=== PATIENT | male | born 1955 | race Caucasian/White ===

== ENCOUNTER 2020-02-20 01:13 | Outpatient (CLI) | payer OTHER, SELFPAY ==
[2020-02-20 18:39] LABS: SARS-CoV-2 RNA PCR Negative
== END 2020-02-20 01:14 | disposition home or self-care (01) ==
LOC: ANHCOVIDDT 01:13
PROVIDERS: PCP Family Medicine; Visit Provider Specialist
DX: Z01.812 Encounter for preprocedural laboratory examination (principal); Z11.59 Encounter for screening for other viral diseases
CPT/HCPCS: 87635; C9803; U0003

== ENCOUNTER 2020-02-22 05:36 | Day surgery (SDC) | payer OTHER, SELFPAY ==
[2020-02-21 15:56] VITALS: BMI 31.6
[2020-02-22] VITALS (8 sets, daily range): BP systolic 111–139; BP diastolic 80–92; PULSE 65–87; RESP 14–25; TEMP 37.2; O2SAT 95–98; BMI 30.6
[2020-02-22 07:34] LABS: Basophils Absolute Auto 0.1 K/mm3 (0.0-0.1); Eosinophils Absolute Auto 0.2 K/mm3 (0-0.3); Eosinophils Percent Auto 2.1 % (0-4.4); Hematocrit 49.2 % (42.0-52.0); Hemoglobin 16.4 g/dL (14.0-18.0); Immature Granulocyte Absolute 0.02 K/mm3 (0.00-0.031); Immature Granulocyte Percent A 0.3 % (0-0.5); Lymphocytes Absolute Auto 2.32 K/mm3 (0.9-3.2); Lymphocytes Percent Auto 30.1 % (18.3-44.2); Mean Corpuscular HGB Conc 33.3 g/dl (32-36); Mean Corpuscular Hemoglobin 28.9 pg (26-34); Mean Corpuscular Volume 86.6 fl (80-100); Mean Platelet Volume 10.3 fl (7.4-10.4); Monocytes Absolute Auto 0.7 K/mm3 (0.1-0.6); Monocytes Percent Auto 9.5 % (2.6-8.5); Neutrophils Absolute Auto 4.4 K/mm3 (1.3-6.7); Platelet Count Result 220 k/mm3 (150-375); Red Blood Count 5.68 M/mm3 (4.6-6.20); Red Cell Distribution Width 12.7 % (11.5-14.5); White Blood Count 7.7 K/mm3 (4.5-10.0)
[2020-02-22 07:46] LABS: Anion Gap 14.4 mmol/L (7-16); Blood Urea Nitrogen 14 mg/dL (9-20); Carbon Dioxide 22 mmol/L (22-30); Chloride 106 mmol/L (98-107); Estimated CRCL calculation 94 ml/min; Estimated Glomerular Filt Rate > 60; Glucose 119 mg/dL (75-110); INR 0.9; Potassium 4.4 mmol/L (3.4-5.0); Prothrombin Time 12.1 Seconds (11.1-14.7); Sodium 138 mmol/L (137-145)
--- NOTE | 2020-02-22 09:21 | WPDMODSED ---
Moderate Sedation Note-Pt Data Patient Data Diagnosis: 64-year-old patient with coronary artery disease, previous RCA PCI. Patient reporting exertional shortness of breath and has a mildly abnormal nuclear stress test Present Complaint: exertional dyspnea Procedure to be performed/Plan: left heart catheterization Allergies Allergy/AdvReac Type Severity Reaction Status Date / Time No Known Allergies Allergy Unknown Verified 02/21/20 16:08 Home Medications Medication Instructions Recorded Confirmed Type aspirin 81 mg tablet,delayed 81 mg PO DAILY 10/05/19 02/22/20 History release metoprolol tartrate 25 mg tablet 25 mg PO BID 10/05/19 02/22/20 History nitroglycerin 0.4 mg sublingual 0.4 mg SUBLINGUAL Q5M 10/05/19 02/21/20 History tablet rosuvastatin 20 mg tablet 20 mg PO DAILY 10/05/19 02/21/20 History Current Medications: Active Medications Sodium Chloride (Normal Saline Iv) 500 mls @ 100 mls/hr IV CONT .Q5H LANDON Sedation/Anesthesia: No previous sedation/anesthesia problems (including family history). [facility] Past Medical History Medical History (Updated 10/05/19 @ 09:15 by Eligio Ivan MD) IFG (impaired fasting glucose) Surgical History Surgical History S/P coronary artery stent placement Social History Social History Smoking status: Never smoker Second hand tobacco smoke exposure: No Alcohol intake: never Substance use: never Substance use type: does not use Gender identity (if verbalized by the patient): Male Mod Sed Physical Exam Physical Exam Pre Procedural Exam: Normal: Neck, Throat, Airway, Lungs, Heart Size, Heart Rate, Heart Rhythm, Neuro Exam and Extremities and Variation: Appearance ( overweight white male no apparent distress) Hours since solid foods: 12 Hours since liquid intake: 12 Internal Medicine - PN: Obj Da Vital Signs Vital Signs: Vital Signs - 24 hr 02/22/20 07:39 Temperature 37.2 C Pulse Rate 71 Respiratory Rate 25 H Blood Pressure 129/92 H Pulse Oximetry 95 Meds/Results Medications: Active Medications Generic Name Dose Route Start Last Admin Trade Name Freq PRN Reason Stop Dose Admin Sodium Chloride 500 mls @ 100 mls/hr 02/22/20 06:00 Normal Saline Iv IV CONT .Q5H LANDON Labs CBC & Chem 7: 02/22/20 07:29 02/22/20 07:29 Labs: Laboratory Results - last 24 hr 02/22/20 02/22/20 02/22/20 07:29 07:29 07:29 WBC 7.7 RBC 5.68 Hgb 16.4 Hct 49.2 MCV 86.6 MCH 28.9 MCHC 33.3 RDW 12.7 Plt Count 220 MPV 10.3 Immature Gran % (Auto) 0.3 Neut % (Auto) 57.0 Lymph % (Auto) 30.1 [place] % (Auto) 9.5 H Eos % (Auto) 2.1 Baso % (Auto) 1.0 Lymph # (Auto) 2.32 [place] # (Auto) 0.7 H Eos # (Auto) 0.2 Baso # (Auto) 0.1 Abs Immat Gran (auto) 0.02 Absolute Neuts (auto) 4.4 Absolute Nucleated RBC 0.0 Nucleated RBC % 0.0 PT 12.1 INR 0.9 Sodium 138 Potassium 4.4 Chloride 106 Carbon Dioxide 22 Anion Gap 14.4 BUN 14 Creatinine 0.90 Estim Creat Clear Calc 94 Estimated GFR > 60 Glucose 119 H Calcium 9.0 ASA Classification/Sedation ASA Classification/Sedation ASA Class: II Emergent: No Risks: Risks, benefits and alternatives explained and patient/family accepted plan for sedation. Patient re-evaluated immediately prior to sedation.
--- NOTE | 2020-02-22 09:30 | PM.IMHP ---
H&P: HPI History of Present Illness Chief complaint: Abnormal Stress Test, Dyspnea Upon Ex, Hx CAD Narrative: Mario Vega is a 64 year old male with an established history of coronary artery disease. Several years ago he presented for evaluation because of EKG abnormalities and stress test abnormalities indicating that he has had a previous infarction that he was unaware of. Angiographically was found to have significant right coronary artery disease which was addressed interventionally with stenting of the vessel with good anatomical result. He is followed by Dr. Webber of our practice since then. During a recent appointment he had noted an increase in exertional shortness of breath with stair climbing. He is not reporting any exertional chest pain per se. Because of this he had a nuclear stress test done which demonstrates and septal/anteroseptal defect which is fixed. For this reason a follow-up angiogram has been recommended. Review of Systems Constitutional: Constitutional: Reports no additional constitutional complaints Eyes: Eyes: Reports no additional eye complaints ENT: Reports system reviewed and no additional complaints, except as documented Cardiovascular: Cardiovascular: Reports as per HPI Respiratory: Respiratory: Reports dyspnea on exertion Gastrointestinal: Gastrointestinal: Reports no additional gastrointestinal complaints Musculoskeletal: Musculoskeletal: Reports no additional musculoskeletal complaints Integumentary/Breasts: Skin/Breast: Reports system reviewed and no additional complaints, except as docu Neurologic: Reports system reviewed and no additional complaints, except as documented Psychiatric: Psychiatric: Reports no additional psychiatric complaints [facility] Past Medical History Medical History (Updated 10/05/19 @ 09:15 by Eligio Ivan MD) IFG (impaired fasting glucose) Surgical History Surgical History S/P coronary artery stent placement Social History Social History Smoking status: Never smoker Second hand tobacco smoke exposure: No Alcohol intake: never Substance use: never Substance use type: does not use Gender identity (if verbalized by the patient): Male Meds Home Medications and Allergies Home Medications Medication Instructions Recorded Confirmed Type aspirin 81 mg tablet,delayed 81 mg PO DAILY 10/05/19 02/22/20 History release metoprolol tartrate 25 mg tablet 25 mg PO BID 10/05/19 02/22/20 History nitroglycerin 0.4 mg sublingual 0.4 mg SUBLINGUAL Q5M 10/05/19 02/21/20 History tablet rosuvastatin 20 mg tablet 20 mg PO DAILY 10/05/19 02/21/20 History Allergies Allergy/AdvReac Type Severity Reaction Status Date / Time No Known Allergies Allergy Unknown Verified 02/21/20 16:08 Vital Signs Vital Signs - 24 hr 02/22/20 07:39 Temperature 37.2 C Pulse Rate 71 Respiratory Rate 25 H Blood Pressure 129/92 H Pulse Oximetry 95 Exam Const: General: comfortable and no acute distress HENMT: Mouth: Yes moist mucous membranes Eyes: Sclera: sclerae normal Pupils: Equal, round and reactive pupils present Neck: Neck: supple and no JVD Thyroid: thyroid normal Resp: Effort & Inspection: normal respiratory effort Auscultation: clear to auscultation bilaterally Cardio: Rate: regular rate Rhythm: regular rhythm GI: GI Palp: Yes Soft to palpation Auscultation: normal bowel sounds Skin: General skin exam: normal color Neuro: Cognition (Neuro): normal cognition Extrem: General: normal to inspection H&P: Results Labs Labs: Short CBC 02/22/20 Range/Units 07:29 WBC 7.7 (4.5-10.0) K/mm3 Hgb 16.4 (14.0-18.0) g/dL Hct 49.2 (42.0-52.0) % Plt Count 220 (150-375) k/mm3 [facility] 02/22/20 07:29 Sodium 138 Potassium 4.4 Chloride 106 Carbon Dioxide 22 BUN 14 Creatinine 0.90 Glucose 119 H
--- NOTE | 2020-02-22 10:04 | WPDCARDPROC ---
Cardiac Cath Procedure Note Date of procedure:: 02/22/20 Performing physician:: Fidel Read MD Indication:: Known history of coronary disease, previous RCA intervention and abnormal nuclear stress test Brief clinical history:: this is a 64-year-old patient with history of coronary disease several years ago the patient underwent right coronary intervention involving 2 drug-eluting stents from the mid to distal portion of the vessel back to the ostium. He also is known to have modest left main disease at that time. He is now reporting some exertional shortness of breath he had a nuclear stress test demonstrating a fixed small anteroseptal defect. For this reason a follow-up angiogram has been recommended Procedure Procedure performed:: left heart catheterization with coronary angiography and left ventriculography Angio-Seal to right femoral artery Sedation/Medication given:: fentanyl 50 mg Versed 2 mg case start time 946 a.m. case end time 10:00 a.m. sedation provided by Binh Joy RN, trained observer Access site:: right femoral artery Estimated blood loss:: 15-20 cc Procedure note:: patient was brought to the cardiac catheterization lab in the postabsorptive state the right femoral triangle was prepared in the normal fashion anesthesia was provided with 1% lidocaine infiltrated locally. Using the modified Seldinger technique the right femoral artery was punctured and a 5 [place]i vascular sheath was placed. After this left heart catheterization was carried out. I used a 5 [place]i angled pigtail catheter to document left-sided hemodynamics and to injected LV g in the ER AO projection. Pullback pressures were then measured across the aortic valve. After this the right coronary artery was injected using a standard 5 [place] JR4 catheter. The left coronary was injected using a standard 5 [place] FL4 catheter. The cineangiograms were then reviewed and the case was terminated. The femoral artery was injected through the sheath after this a 6 [place] Angio-Seal device was deployed with a good hemostatic result. The procedure was well tolerated and the patient left the laborer sawmill with no evidence of a groin hematoma. Findings:: Central aortic pressure was 130/62 left ventricle 130/0 end-diastolic pressure of 12 there is no systolic gradient on pullback across the aortic valve. The left ventricle is normal in size all segments contract well global ejection fraction is visually estimated to be 60-65%. The left main coronary artery is Mildly disease there is a 30-40% distal left main coronary stenosis angiographically unchanged compared with previous exam the left anterior descending is a small to medium caliber vessel with mild luminal irregularities but no flow-limiting disease. the circumflex is a moderate caliber vessel giving rise to the marginal branches there is minimal 20% stenosis in the mid trunk of the circumflex is angiographically this is also unchanged compared with previous exam the right coronary artery is moderate caliber and dominant to the posterior circulation. The right coronary artery is widely patent with excellent flow. There is visible stent material from the mid to distal RCA back to the ostium. There is no loss of lumen there is excellent ANDREA 3 flow in the RCA. Conclusion:: 1. Coronary artery disease doing very well and continues to be well revascularized following RCA intervention previously. 2. Modest non flow limiting left coronary disease including modest distal left main plaque which looks no different compared to previous exam 3. normal left ventricular systolic function 4. successful Angio-Seal to right femoral artery Fidel Read MD [facility]
--- NOTE | 2020-02-22 14:15 | SUR.PHASEII ---
Discharge instructions given to patient. All questions answered. Patient verbalized understanding. PIV removed. Patient escorted to vehicle via wheelchair.
== END 2020-02-22 14:20 | disposition home or self-care (01) ==
PROVIDERS: PCP Family Medicine; Visit Provider Specialist
PROC: 4A023N7 Measurement of Cardiac Sampling and Pressure, Left Heart, Percutaneous Approach (ICD-10-PCS; CPT 93452; principal; 2020-02-22 08:30)
DX: I25.10 Atherosclerotic heart disease of native coronary artery without angina pectoris (principal); Z95.5 Presence of coronary angioplasty implant and graft; Z79.82 Long term (current) use of aspirin; Z79.899 Other long term (current) drug therapy
CPT/HCPCS: 36415; 80048; 85025; 85610; 93458; C1760; C1887; C1894; G0269; J1644; J2250; J3010; J7040

== ENCOUNTER → 2021-03-19 14:41 | Outpatient (CLI) | payer OTHER, SELFPAY ==
--- NOTE | ~2021-03-19 | XR_ITS ---
EXAMINATION: XR chest 2V 03/19/2021 14:52 INDICATION: Cough PROCEDURE: 2 view chest COMPARISON: 03/20/2015 FINDINGS: The lungs are clear. The cardiomediastinal silhouette is within normal limits. There are no pleural effusions. There is no pneumothorax suspected. IMPRESSION: 1: NO ACUTE CARDIOPULMONARY DISEASE. Reviewed, dictated and finalized at location A.
== END ==
PROVIDERS: PCP Family Medicine; Visit Provider Physician Assistant
DX: R05 Cough (principal)
CPT/HCPCS: 71046

== ENCOUNTER 2021-06-15 08:00 | Outpatient (CLI) | payer OTHER, SELFPAY ==
--- NOTE | ~2021-06-15 | US_ITS ---
EXAMINATION: US carotid duplex BI DATE: 06/15/2021 08:52 INDICATION: Right carotid bruit. TECHNIQUE: Grayscale, color Doppler, and pulsed Doppler images of the cervical carotid arteries were obtained. The degree of vessel stenosis is placed in one of the following categories: normal, <50%, 5 0-69%, >=70% but less than near-occlusion, near-occlusion, or total occlusion. Note that percent sten osis relative to normal distal artery lumen diameter is indirectly measured from velocity measurement s as described by Juan C, et al. Radiology 2003; 229:340-346. COMPARISON: None. FINDINGS: RIGHT: The right common carotid artery (CCA) peak systolic velocity (PSV) is 83 cm/s. The right internal car otid artery (ICA) PSV is 746 cm/s. The right ICA end-diastolic velocity (EDV) is 359 cm/s. The right ICA/CCA PSV ratio is 9.0. Grayscale and color Doppler images yield an estimate of >=50% diameter redu ction from plaque in the ICA. There is antegrade flow in the right vertebral artery. LEFT: The left CCA PSV is 159 cm/s. The left ICA PSV is 457 cm/s. The left ICA EDV is 136 cm/s. The left IC A/CCA PSV ratio is 2.9. Grayscale and color Doppler images yield an estimate of >=50% diameter reduct ion from plaque in the ICA. There is antegrade flow in the left vertebral artery. IMPRESSION: 1. >70% stenosis in the right internal carotid artery, but less than near occlusion. 2. >70% stenosis in the left internal carotid artery, but less than near occlusion. Reviewed, dictated and finalized at location A. L [employer] IMPRESSION: 1. >70% stenosis in the right internal carotid artery, but less than near occlu zuri. 2. >70% stenosis in the left internal carotid artery, but less than near occlus ion.
== END 2021-06-15 08:01 | disposition home or self-care (01) ==
PROVIDERS: PCP Family Medicine; Visit Provider Internal Medicine Cardiovascular Disease
DX: R09.89 Other specified symptoms and signs involving the circulatory and respiratory systems (principal); I65.23 Occlusion and stenosis of bilateral carotid arteries
CPT/HCPCS: 93880

== ENCOUNTER 2023-01-23 07:41 | Emergency (ER) | payer OTHER, SELFPAY ==
[2023-01-23] VITALS (11 sets, daily range): BP systolic 123–201; BP diastolic 67–92; PULSE 46–65; RESP 13–22; TEMP 36.6; O2SAT 94–100
--- NOTE | ~2023-01-23 | XR_ITS ---
XR chest 1V portable DATE: 01/23/2023 08:45 INDICATION: Neurological symptoms TECHNIQUE: Portable upright AP chest on 01/23/2023 at 0844 hours COMPARISON: 03/19/2021 2 view chest FINDINGS: Normal heart size. No hilar or mediastinal enlargement. No pulmonary infiltrate or consolid ation, pleural effusion or pulmonary vascular congestion or pneumothorax. IMPRESSION: No active cardiopulmonary disease Reviewed, dictated and finalized at location A.
--- NOTE | ~2023-01-23 | CT_ITS ---
CT ANGIOGRAM NECK AND HEAD History: Left facial droop. Technique: Serial spiral axial images through the head and neck were obtained during arterial phase I V injection of 100 cc of Omnipaque 350. 3-D postprocessing and MIP images were then reconstructed on the remote workstation. Dose reduction technique was used on this scan by utilizing automated exposur e control and iterative reconstruction technique. The dose-length product (DLP) was 1258.51 mGy-cm. CTA neck findings: There is occlusion at the proximal left vertebral artery, with reconstitution at the C6 level, with the remainder of the more distal vessel patent, though small in caliber as compare d to the right side. Right vertebral artery is patent, and unremarkable. Right common carotid, internal carotid, and external carotid arteries are patent, and unremarkable. L eft common carotid, internal carotid, and external carotid arteries are patent. There is prominent ca lcified plaque at the proximal left internal carotid artery, resulting in high-grade stenosis, approx imately 80%. The proximal right internal carotid artery demonstrates 0% stenosis relative to the norm al distal artery lumen diameter. The proximal left internal carotid artery demonstrates 80% stenosis relative to the normal distal artery lumen diameter. CTA head findings: Distal vertebral arteries, basilar artery, and posterior cerebral arteries are pat ent. Distal internal carotid arteries, middle cerebral arteries, and anterior cerebral arteries are p atent. No large vessel occlusion. No stenosis or aneurysm. 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 Etiology for the occlusion is somewhat unclear, with diagnostic considerations inclu ding atherosclerotic occlusion, or possibly vertebral artery dissection. Clinical correlation require d. 80% stenosis (high-grade stenosis) of the proximal left internal carotid artery, related to mixed sof t and calcified plaque. Reviewed, dictated and finalized at location M. Impression: Occlusion/nonopacification of the proximal portion of the left vertebral artery , with reconstitution at the C6 level. Etiology for the occlusion is somewhat u nclear, with diagnostic considerations including atherosclerotic occlusion, or possibly vertebral artery dissection. Clinical correlation required. 80% stenosis (high-grade stenosis) of the proximal left internal carotid artery , related to mixed soft and calcified plaque.
--- NOTE | ~2023-01-23 | CT_ITS ---
EXAMINATION: CT brain wo con DATE: 01/23/2023 09:28 INDICATION: Left facial droop, numbness TECHNIQUE: Computed tomography (CT) of the head was performed without intravenous contrast. The mA wa s adjusted according to patient size. Iterative reconstruction technique was employed. Exam dose: 60 5.33 mGy-cm total exam DLP. COMPARISON: None FINDINGS: Right vertebral artery and prominent bilateral carotid siphon internal carotid artery calci fications. There is nonspecific diminished attenuation of the cerebral white matter, likely due to chronic small vessel ischemic changes. No intracranial mass lesion or hemorrhage or cerebrovascular accident is evident. No midline shift or mass effect. No subdural or epidural hematoma is detected. The mastoid air cells and paranasal sinuses are normally developed and aerated. No fracture or bone destruction of the cranial vault. IMPRESSION: Cerebral atherosclerosis and chronic small vessel ischemic changes of the cerebral white matter Reviewed, dictated and finalized at Location A. Reviewed, dictated and finalized at location A.
--- NOTE | 2023-01-23 07:50 | ECG_ITS ---
Measurements Intervals [place] Rate: 51 P: 17 [place]: 190 QRS: -18 QRSD: 118 T: 1 QT: 408 QTc: 378 Interpretive Statements SINUS BRADYCARDIA OTHERWISE UNREMARKABLE ECG NO PREVIOUS ECG AVAILABLE FOR COMPARISON Electronically Signed On 01-23-2023 8:35:04 CDT by Fidel Read M.D.
[2023-01-23 08:09] LABS: Basophils Absolute Auto 0.1 K/mm3 (0.0-0.1); Basophils Percent Auto 1.2 % (0.2-1.2); Eosinophils Absolute Auto 0.2 K/mm3 (0-0.3); Hematocrit 45.1 % (42.0-52.0); Hemoglobin 14.4 g/dL (14.0-18.0); Immature Granulocyte Absolute 0.02 K/mm3 (0.00-0.031); Immature Granulocyte Percent A 0.3 % (0-0.5); Lymphocytes Absolute Auto 1.76 K/mm3 (0.9-3.2); Mean Corpuscular HGB Conc 31.9 g/dl (32-36); Mean Corpuscular Hemoglobin 29.1 pg (26-34); Mean Corpuscular Volume 91.1 fl (80-100); Mean Platelet Volume 10.1 fl (7.4-10.4); Monocytes Absolute Auto 0.5 K/mm3 (0.1-0.6); Monocytes Percent Auto 7.1 % (2.6-8.5); Neutrophils Absolute Auto 4.2 K/mm3 (1.3-6.7); Neutrophils Percent Auto 62.4 % (45.5-73.1); Platelet Count Result 203 k/mm3 (150-375); Red Blood Count 4.95 M/mm3 (4.6-6.20); Red Cell Distribution Width 13.2 % (11.5-14.5); White Blood Count 6.8 K/mm3 (4.5-10.0)
[2023-01-23 08:19] LABS: Alanine Aminotransferase 28 U/L (6-50); Albumin Level 4.3 g/dL (3.5-5.1); Alkaline Phosphatase 56 U/L (38-126); Anion Gap 6 mmol/L (8-16); Aspartate Amino Transferase 28 U/L (17-59); Bilirubin,Total 0.6 mg/dL (0.2-1.3); Blood Urea Nitrogen 15 mg/dL (9-20); Calcium 8.6 mg/dL (8.4-10.2); Carbon Dioxide 25 mmol/L (22-30); Chloride 108 mmol/L (98-107); Estimated CRCL calculation 79 ml/min; Estimated Glomerular Filt Rate > 60; Glucose 149 mg/dL (65-110); Potassium 4.2 mmol/L (3.4-5.0); Prothrombin Time 14.1 Seconds (11.1-14.7); Sodium 139 mmol/L (137-145)
[2023-01-23 08:20] LABS: Partial Thromboplastin Time 29.6 SECONDS (22.3-36.8)
[2023-01-23 08:30] LABS: Troponin I < 0.012 ng/mL (0.000-0.034)
--- NOTE | 2023-01-23 09:09 | ED.NEUROSD ---
HPI - Neuro Symptoms/Deficit General Chief Complaint: Neuro Symptoms/Deficit <Gabby Field APRN - Last Filed: 01/23/23 11:47> Stated Complaint: mini stroke, facial numbness <Gabby Field APRN - Last Filed: 01/23/23 11:47> Time Seen by Provider: 01/23/23 09:02 <Gabby Field [employer] - Last Filed: 01/23/23 11:47> History of Present Illness HPI Narrative: 67-year-old male presents to the emergency room today for left-sided facial numbness and drooping of the left side of his mouth. He started to notice some tingling to the left side of his tongue yesterday evening. This morning when he was shaving he noticed that his left side of his mouth was drooping and he was having more problems with numbness to the left side of his face. He does not have any extremity weakness or numbness. He does have some mild left occipital headache. He has a history of carotid artery blockage. He has had a right-sided endarterectomy but they are holding off on doing the left until he gets worse or he starts to have neurological symptoms. He was told if he has any neuro symptoms he should come to the hospital right away. <Gabby Field APRN - Last Filed: 01/23/23 11:47> Related Data Home Medications: Home Medications Medication Instructions Recorded Confirmed aspirin 81 mg tablet,delayed 81 mg PO DAILY 10/05/19 01/20/23 release metoprolol tartrate 25 mg tablet 25 mg PO BID 10/05/19 01/20/23 nitroglycerin 0.4 mg sublingual 0.4 mg sublingual Q5M 10/05/19 01/20/23 tablet rosuvastatin 20 mg tablet (Crestor) 20 mg PO DAILY 10/05/19 01/20/23 rivaroxaban 2.5 mg tablet (Xarelto) 2.5 mg PO BID 05/07/20 01/20/23 <Gabby Field APRN - Last Filed: 01/23/23 11:47> Allergies/Adverse Reactions: Allergies Allergy/AdvReac Type Severity Reaction Status Date / Time No Known Allergies Allergy Unknown Verified 01/23/23 07:49 <Gabby Field APRN - Last Filed: 01/23/23 11:47> Review of Systems Review of Systems: CONSTITUTIONAL: Denies fever, chills, or sweats. EYES: Denies visual changes, redness, or discharge. ENT: Denies rhinorrhea, congestion, sore throat, or otalgia. CARDIOVASCULAR: Denies chest pain, palpitations, or edema. RESPIRATORY: Denies cough or dyspnea. GASTROINTESTINAL: Denies abdominal pain, nausea, vomiting, or diarrhea. GENITOURINARY: Denies dysuria or hematuria. SKIN: Denies rash or itching. MUSCULOSKELETAL: Denies back pain, joint pain, or myalgia. NEUROLOGIC: as per HPI PSYCHIATRIC: Denies anxiety or depression. <Gabby Field [employer] - Last Filed: 01/23/23 11:47> [facility] Past Medical History Medical History: Medical History IFG (impaired fasting glucose) <Gabby Field [employer] - Last Filed: 01/23/23 11:47> Surgical History Surgical History: Surgical History S/P carotid endarterectomy right S/P coronary artery stent placement <Gabby Field [employer] - Last Filed: 01/23/23 11:47> Family History Family History: Family History Mother Diabetes mellitus Carcinoma of colon, Onset Age: 78 Family history of pancreatic cancer Family history of coronary artery disease Father Family history of lung cancer, Onset Age: 45 Other Asthma <Gabby Field [employer] - Last Filed: 01/23/23 11:47> Social History Social History: Social History Social History: Smoking status: Never smoker Second hand tobacco smoke exposure: No Alcohol intake: never Substance use: never Substance use type: does not use Living arrangements: with family Occupation/Education: occupation Gender identity (if verbalized by the patient): Male Sexual Orientation (if Verbalized by the Patient)
[2023-01-23] MEDS: hydrALAZINE HCL 20 MG/ML VIAL 10 MG IV PUSH ×2 (11:42→12:21)
--- NOTE | 2023-01-23 12:11 | PC.NURSE ---
[id number]*2 at [facility] [phone]
== END 2023-01-23 13:00 | disposition short-term general hospital (02) ==
PROVIDERS: Preventive Medicine Aerospace Medicine; Emergency Provider Nurse Practitioner Family; PCP Family Medicine
DX: I77.74 Dissection of vertebral artery (principal); R29.810 Facial weakness; Z79.82 Long term (current) use of aspirin
CPT/HCPCS: 36415; 70450; 70496; 70498; 71045; 80053; 84484; 85025; 85610; 85730; 93005; 96374; 96376; 99285; J0360; Q9967

== ENCOUNTER 2024-10-17 00:48 | Day surgery (SDC) | payer OTHER, SELFPAY ==
[2024-07-30 14:23] VITALS: BMI 32.5
[2024-10-04 12:29] VITALS: BMI 32.5
--- NOTE | 2024-10-04 12:46 | PC.NURSE ---
Spoke with patient regarding medication Xarelto & Aspirin. Patient verbalizes understanding that the last dose is to be taken on 10/13/24 for Xarelto & 10/11/24 for Aspirin and the Endoscopist will instruct them when to restart after the procedure.
--- OUTSIDE RECORDS SUMMARY | 2024-10-17 00:50 | XMS_ITS | Encounter Summary ---
Author Organization [facility] Address [address] [place] [address] Care Team Providers Care Crib Attendant Name Role Phone Eligio Ivan MD Primary Care Provider Eligio Ivan MD Primary Care Provider Eligio Ivan MD Primary Care Provider Robert Webber MD Unavailable [phone] Arron Hunter MD Unavailable [phone] Encounter Details Date Type Department Care Team (Late st Contact Info) Description 07/28/2016 Orders Only [facility] ProviderTerese MD [address] [place] [id number] Social History Tobacco Use Types Packs/Day Years Used Date Smoking Tobacco: Never Assessed Sex and Gender Information Value Date Recorded Sex Assigned at Not on file Legal Sex Male 3:48 AM [employer] Gender Identity Not on file Sexual Orientation Not on file documented as of this encounter Plan of Treatment Not on file documented as of this encounter Procedures Procedure Name Priority Date/Time Associated Diagnosis Comments CARDIOLOGY REPORT 07/28/2016 documented in this encounter Results * CARDIOLOGY REPORT (07/28/2016) Anatomical Region Laterality Modality Other Narrative 07/28/2016 Ordered by an unspecified provider. Historical Provider [facility] TER[facility] VENEGAS Final Result documented in this encounter Visit Diagnoses Not on filedocumented in this encounter Additional Health Concerns Infection Onset Date Last Indicated Resolved Time Exposure, COVID-19 07/16/2021 07/20/2021 2 3:05 AM [employer] documented as of this encounter Care Teams Crib Attendant Relationship Specialty Start Date End Date Eligio Ivan MD [address] [place] [address] PCP - General 10/29/16 Eligio Ivan MD [address] [place] [address] PCP - General 08/09/16 10/28/16 Eligio Ivan MD [address] [place] [address] PCP - General 07/28/16 08/08/16 Robert Webber MD [address] [place] [address] Consulting Physician Cardiology 05/05/23 [place] [id number] [place] [address] Consulting Physician Vascular Surgery 07/07/23 documented as of this encounter
--- OUTSIDE RECORDS SUMMARY | 2024-10-17 00:50 | XMS_ITS | Referral Summary ---
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 (CMS/HCC) (HCC) (Primary Dx); Bilateral carotid artery stenosis; Hyperlipidemia LDL goal <70; Obstructive sleep apnea syndrome from Last 3 Months Allergies No known active allergies Medications nitroglycerin (NITROSTAT) 0.[address] 1 tablet (0.4 mg total) under the tongue every 5 (five) minutes as needed for chest pain Active calcium carbonate (OS-WILI) 1,250 mg (500 mg elemental) tablet Take 1 tablet (1,250 mg total) by mouth daily for 5 days 5 tablet 3 Active Additional Information Patient taking differently:1,250 mg oral2 times daily, Indications: Hypocalcemia Prevention, Reported on 08/27/2024 aspirin (Osman Low Dose Aspirin) 81 mg enteric coated tabletIndication s:Myocardial Reinfarction Prevention Take 1 tablet (81 mg total) by mouth vice president of nursing before breakfast 3 Active acetaminophen (TYLENOL) 325 mg tabletIndication s:Fever,Pain Take 2 tablets (650 mg total) by mouth every 4 (four) hours as needed for pain 3 Active Xarelto 2.5 mg tabletIndication s: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 TAKE 1 TABLET BY MOUTH TWICE A DAY 180 tablet 3 4 Active metoprolol tartrate (LOPRESSOR) 25 mg immediate release tablet TAKE 1 TABLET BY MOUTH TWICE A DAY 180 tablet 1 4 Active icosapent ethyL (VASCEPA) 1 gram capsuleIndicatio ns: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 Recent concerns for TIA, now presenting for planned left CEA. - OR 07/06/23 for left carotid endarterectomy. - Goal SBP 110-150 - Continue aspirin and statin. - Admit to OU for close NV, HR, and BP monitoring. - CLD, advance as tolerated tomorrow. - Remove parker in AM. Assessment & Plan (08/07/2021 9:32 AM NURSES SUPERINTENDENT): Patient has asymptomatic bilateral, right greater than left carotid stenosis. Staged intervention, right side first. Will return at later date for left side. - To OR on 08/06/2021 for right carotid endarterectomy. - Systolic Blood pressure goal 90-150 mmHg. Phenylephrine vs nicardipine if not within goals. - Home metoprolol as able. - DC OU status/art line - DC DIONICIO drain - Parker removed, f/u void check - advance diet - OOB to chair/ambulate Right carotid bruit 05/22/2021 Chest discomfort 03/02/2018 Coronary artery disease of n ative artery of chinik heart with stable angina pectoris ([facility]) 09/24/2016 Overview (11/05/2016): Coronary artery disease involving chinik coronary artery of chinik heart without angina pectoris Assessment & Plan (07/06/2023 10:53 AM NURSES SUPERINTENDENT): Hx of CAD, [place] in 2015, KARMEN 2016 to RCA, HTN On outpatient Xarelto 2.5mg BID. F/u when to restart this following carotid surgery. - Continue aspirin and statin. - Resume home metoprolol if BP and HR allow. Assessment & Plan (08/07/2021 9:33 AM NURSES SUPERINTENDENT): - Hx of multiple coronary stents on outpatient aspirin and Xarelto. - Restart Xarelto on POD 4-5. Abnormal cardiovascular stress test 08/11/2016 Overview (11/06/2016): Abnormal stress test Hyperlipidemia LDL goal <70 08/11/2016 Overview (11/06/2016): Hyperlipidemia LDL goal <70 Dyspnea on exertion 08/11/2016 Overview (11/06/2016): Dyspnea on effort Obstructive sleep apnea syndrome 08/11/2016 Overview (11/06/2016): Obstructive sleep apnea Immunizations Immunization Administration Dates Next Due Influenza, Quadrivalent, Hig h Dose, Preservative Free, Intrr 07/07/2023 Influenza, Quadrivalent, Rec ombinant, Egg Free, Preservative Free, Intramuscular 05/22/2018 Influenza, Trivalent, Preservative Free, Intramu scular 05/30/2013 Social History Tobacco Use Types Packs/Day Years Used Date Smoking Tobacco: Some Days Cigars Smokeless Tobacco: Never Tobacco Cessation:Ready to Q uit: Not Asked; Counseling Given: Not Answered Alcohol Use Standard Drinks/Week Comments No 0 (1 standard drink = 0.6 oz pur e alcohol) AUDIT-C Answer Date Recorded Q1: How often do you have a drink containing alc ohol? Monthly or less 07/06/2023 Q2: How many drinks containi ng alcohol do you have on a typical day when you are drinking? 1 or 2 07/06/2023 Q3: How often do you have si x or more drinks on one occasion? Never 07/06/2023 Personal Safety Answer Date Recorded Have you ever been in or are you currently in a harmful physical or emotional relationship or is someone making you feel afraid or unsafe? Denies 07/06/2023 Sex and Gender Information Value Date Recorded Sex Assigned at Not on file Legal Sex Male 3:48 AM NURSES SUPERINTENDENT Gender Identity Not on file Sexual Orientation Not on file Last Filed Vital Signs Vital Sign Reading Time Taken Comments Blood Pressure 132/88 08/27/2024 8:25 AM NURSES SUPERINTENDENT Pulse 57 08/27/2024 8:25 AM NURSES SUPERINTENDENT Temperature 36.8 C (98.3 F) 07/02/2024 8:21 AM NURSES SUPERINTENDENT Respiratory Rate 16 07/07/2023 8:03 AM NURSES SUPERINTENDENT Oxygen Saturation 97% 08/27/2024 8:25 AM NURSES SUPERINTENDENT Inhaled Oxygen Concentration - - Weight 109.8 kg (242 lb) 08/27/2024 8:25 AM NURSES SUPERINTENDENT Height 185.4 cm (6' 1 ) 08/27/2024 8:25 AM NURSES SUPERINTENDENT Body Mass Index 31.93 08/27/2024 8:25 AM NURSES SUPERINTENDENT Plan of Treatment Not on file Medical Devices Implanted Type Area Ibm Websphere Commerce Developer Device Identifier Shelf Expiration Date Model / Serial / Lot [employer] [id number] Vascu-Guard 8x.8cm Peripheral Patch Vascular Bovine Pericardium - S00 - [id number] Implanted:Qty: 1 on 08/06/2021 by Arron Hunter MD at [facility] Other - see comments Right: Carotid [employer] [id number] 04/08/2026 [id number] / 00 / [id number]- [id number] [employer] Patch Vascuguard 0.88cm [id number] - S00 - [id number] Implanted:Qty: 1 on 07/06/2023 by Arron Hunter MD at [facility] Other - see comments Left: Carotid [employer] [id number] 02/15/2024 [id number] / 00 / [id number]- [id number] Stent- 7 Implanted:Qty: 2 on 08/13/2016 Stent Heart [employer] Vascular Procedures Procedure Name Priority Date/Time Associated Diagnosis Comments POCT LIPID PANEL Routine 08/27/2024 8:27 AM NURSES SUPERINTENDENT 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 (CMS/HCC) (HCC) Hyperlipidemia LDL goal <70 from Last 3 Months Results * POCT lipid panel (08/27/2024 8:27 AM NURSES SUPERINTENDENT) Cholesterol, POC 158 mg/dL HDL, POC 31 mg/dL Triglycerides, POC 215 mg/dL LDL Cholesterol POC 84 mg/dL Chol/HDL Ratio, POC 2.7 Non-HDL Cholesterol, POC 127 mg/dL Cholesterol Total, POC 158 mg/dL Capillary blood 08/27/2024 8 :27 AM NURSES SUPERINTENDENT us Robert Webber MD POINT OF CARE TEST ORDERA BLES Final Result from Last 3 Months Insurance [facility] Advance Directives For more information, please contact: [phone] Documents on File Type Date Recorded Patient Accounts Administrator Expl anation ADVANCE DIRECTIVE 08/06/2021 2:16 PM Power of Painter [employer] * Full Code (Latest Code Status on File) Date Activated Date Inactivated Comments 07/06/2023 12:19 PM 07/07/2023 5:44 PM * Full Code Date Activated Date Inactivated Comments 01/23/2023 1:42 PM 01/24/2023 3:48 PM * Full Code Date Activated Date Inactivated Comments 08/06/2021 9:26 PM 08/08/2021 9:15 PM Care Teams Hand Button Splitter Relationship Specialty Start Date End Date Eligio Ivan MD [address] [facility] [address] [place] [address] PCP - General 10/29/16 Robert Webber MD [address] [facility] [address] [facility] [address] [place] [address] Consulting Physician Cardiology 05/05/23 [place] [address] [address] Consulting Physician Vascular Surgery 07/07/23
--- OUTSIDE RECORDS SUMMARY | 2024-10-17 00:50 | XMS_ITS | Clinical Summary ---
Author Organization [facility] [address] Address [address] [place] [address] Care Team Providers Care Candy Puller Name Role Phone Eligio Ivan MD Primary Care Provider Robert Webber MD Unavailable Arron Hunter MD Unavailable [phone] Allergies No known active allergies Medications nitroglycerin [...] 1 tablet (81 mg total) by mouth vocational rehabilitation counselor before breakfast 3 Active acetaminophen (TYLENOL) 325 mg tabletIndication s:Fever,Pain Take 2 tablets (650 mg total) by mouth every 4 (four) hours as needed for pain 3 Active Xarelto 2.5 mg tabletIndication s:Coronary artery disease of kiana artery of kiana heart with stable angina pectoris TAKE 1 TABLET BY MOUTH TWICE A DAY 180 tablet 3 4 Active metoprolol tartrate (LOPRESSOR) 25 mg immediate release tablet TAKE 1 TABLET BY MOUTH TWICE A DAY 180 tablet 1 10/11/202 4 Active icosapent ethyL (VASCEPA) 1 gram capsuleIndicatio ns:Coronary artery disease of kiana artery of kiana heart with stable angina pectoris TAKE 2 CAPSULES BY MOUTH TWICE A DAY 360 capsule 1 4 Active rosuvastatin (CRESTOR) 40 mg tablet TAKE 1 TABLET BY MOUTH EVERY DAY 90 tablet 5 Active Active Problems Problem Noted Date Diagnosed Date Carotid stenosis, asymptomatic, left 07/06/2023 Vertebral artery dissection 01/23/2023 Bilateral carotid artery stenosis 07/02/2021 Overview (07/02/2021): Added automatically from request for surgery [id number] Assessment & Plan (07/06/2023 1:04 PM ACCOUNTS RECEIVABLE EXECUTIVE): Patient with bilateral carotid stenosis s/p right CEA 08/2021. Recent concerns for TIA, now presenting for planned left CEA. - OR 07/06/23 for left carotid endarterectomy. - Goal SBP 110-150 - Continue aspirin and statin. - Admit to OU for close NV, HR, and BP monitoring. - CLD, advance as tolerated tomorrow. - Remove parker in AM. Assessment & Plan (08/07/2021 9:32 AM ACCOUNTS RECEIVABLE EXECUTIVE): Patient has asymptomatic bilateral, right greater than [...] artery disease of n ative artery of kiana heart with stable angina pectoris ([facility]/HCC) 09/24/2016 Overview (11/05/2016): Coronary artery disease involving kiana coronary artery of kiana heart without angina pectoris Assessment & Plan (07/06/2023 10:53 AM ACCOUNTS RECEIVABLE EXECUTIVE): Hx of CAD, [place] in 2016, KARMEN 2017 to RCA, HTN On outpatient Xarelto 2.5mg BID. F/u when to restart this following carotid surgery. - Continue aspirin and statin. - Resume home metoprolol if BP and HR allow. Assessment & Plan (08/07/2021 9:33 AM ACCOUNTS RECEIVABLE EXECUTIVE): - Hx of multiple coronary stents on outpatient aspirin and Xarelto. - Restart Xarelto on POD 4-5. Abnormal cardiovascular stress test 08/11/2016 Overview (11/06/2016): Abnormal stress test Hyperlipidemia LDL goal <70 08/11/2016 Overview (11/06/2016): Hyperlipidemia LDL goal <70 Dyspnea on exertion 08/11/2016 Overview (11/06/2016): Dyspnea on effort Obstructive sleep apnea syndrome 08/11/2016 Overview (11/06/2016): Obstructive sleep apnea Encounters Date Type Department Care Team Description 08/27/2024 8:30 AM ACCOUNTS RECEIVABLE EXECUTIVE Office Visit [facility] Cardiology [address] [place] [address] Robert Webber MD Coronary artery disease of kiana artery of kiana heart with stable angina pectoris (CMS/HCC) (HCC) (Primary Dx); Bilateral carotid artery stenosis; Hyperlipidemia LDL goal <70; Obstructive sleep apnea syndrome from Last 3 Months Immunizations Immunization Administration Dates Next Due Influenza, Quadrivalent, Hig h Dose, Preservative Free, Intrr 07/07/2023 Influenza, Quadrivalent, Rec ombinant, Egg Free, Preservative Free, Intramuscular 05/22/2018 Influenza, Trivalent, Preservative Free, Intramu scular 05/30/2013 Surgical History Surgery Date Site/Laterality Comments CORONARY ANGIOPLASTY WITH ST ENT PLACEMENT 08/01/2016 - 07/31/2017 CARDIAC CATHETERIZATION 01/30/2020 - 02/29/2020 COLONOSCOPY EYE SURGERY cataract Medical History Medical History Date Comments Sleep apnea Sleep apnea Malignant neoplasm of skin Cance r, skin Diverticulitis of intestine Dive rticulitis 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 HLD (hyperlipidemia) CAD (coronary artery disease) Carotid stenosis Obesity Wheezing SOB (shortness of breath) Cough Family History Medical History Relation Name Comments Lung cancer Father Cancer, lung; C ause of : Cancer, lung Colon cancer Mother Cancer, colon; Cause of : Cancer, colon Heart attack Mother Stroke Mother Heart disease Other 1 Family history of Cardiovascular disease; Diabetes Other 2 Family history of Diabetes mellitus; Stroke Other 3 Family history of Stroke; Other Sister 2 Alive and well; Anesthesia problems Neg Hx Relation Name Status Comments Father (Age 45) Mother (Age 87) CO age 60s , CVA age 70s Other 1 Other 2 Other 3 Sister 1 Alive Sister 2 Social History Tobacco Use Types Packs/Day Years [...] on file Legal Sex Male 3:48 AM ACCOUNTS RECEIVABLE EXECUTIVE Gender Identity Not on file Sexual Orientation Not on file Obstetrics History Last Filed Vital Signs Vital Sign Reading Time Taken Comments Blood Pressure 132/88 08/27/2024 8:25 AM ACCOUNTS RECEIVABLE EXECUTIVE Pulse 57 08/27/2024 8:25 AM ACCOUNTS RECEIVABLE EXECUTIVE Temperature 36.8 C (98.3 F) 07/02/2024 8:21 AM ACCOUNTS RECEIVABLE EXECUTIVE Respiratory Rate 16 07/07/2023 8:03 AM ACCOUNTS RECEIVABLE EXECUTIVE Oxygen Saturation 97% 08/27/2024 8:25 AM ACCOUNTS RECEIVABLE EXECUTIVE Inhaled Oxygen Concentration - - Weight 109.8 kg (242 lb) 08/27/2024 8:25 AM ACCOUNTS RECEIVABLE EXECUTIVE Height 185.4 cm (6' 1 ) 08/27/2024 8:25 AM ACCOUNTS RECEIVABLE EXECUTIVE Body Mass Index 31.93 08/27/2024 8:25 AM ACCOUNTS RECEIVABLE EXECUTIVE Plan of Treatment Health Maintenance Due Date Last Done Comments Colon Cancer Screening-Colonoscopy 1955 Depression Screening 1955 Hepatitis C Screening 1955 Prostate Cancer Screening-PSA 1955 DTaP/Tdap/Td Vaccine (1 - Tdap) 10/11/1966 Hepatitis B Screening 10/11/1973 Pneumococcal vaccine 65+ (1 of 2 - PCV) 10/11/1974 Zoster Vaccine (1 of 2) 10/11/2005 Abdominal Aortic Aneurysm (A AA) Screen 10/11/2020 Well Visit 65+ 10/11/2020 Covid-19 Vaccine (4 - 2023-2 5 season) 2024 05/02/2021, 09/29/2020, 09/08/2020 Influenza Vaccine (#1) 2024 , 05/02/2021, 05/22/2018, Additional history exists Fall Risk Assessment 07/07/2024 07/07/2023 Medical Devices Implanted Type Area Lead Manufacturing Engineer Device Identifier Shelf Expiration Date Model / Serial / Lot [employer] [id number] Vascu-Guard 8x.8cm Peripheral Patch Vascular Bovine Pericardium - S00 - [id number] Implanted:Qty: 1 on 08/06/2021 by Arron Hunter MD at [facility] Other - see comments Right: Carotid [employer] [id number] 04/08/2026 [id number]-[id number] / 00 / [id number]- [id number] [employer] Patch Vascuguard 0.88cm [id number] - S00 - [id number] Implanted:Qty: 1 on 07/06/2023 by Arron Hunter MD at [facility] Other - see comments Left: Carotid [employer] [id number] 02/15/2024 [id number] / 00 / [id number]- [id number] Stent- 7 Implanted:Qty: 2 on 08/13/2016 Stent Heart [facility] Vascular Procedures Procedure Name Priority Date/Time Associated Diagnosis Comments POCT LIPID PANEL Routine 08/27/2024 8:27 AM ACCOUNTS RECEIVABLE EXECUTIVE Coronary artery disease of kiana artery of kiana heart with stable angina pectoris (CMS/HCC) (HCC) Hyperlipidemia LDL goal <70 from Last 3 Months Results * POCT lipid panel (08/27/2024 8:27 AM ACCOUNTS RECEIVABLE EXECUTIVE) Cholesterol, POC 158 mg/dL HDL, POC 31 mg/dL Triglycerides, POC 215 mg/dL LDL Cholesterol POC 84 mg/dL Chol/HDL Ratio, POC 2.7 Non-HDL Cholesterol, POC 127 mg/dL Cholesterol Total, POC 158 mg/dL Capillary blood 08/27/2024 8 :27 AM ACCOUNTS RECEIVABLE EXECUTIVE Robert Webber MD POINT OF CARE TEST ORDERA BLES Final Result from Last 3 Months Insurance [facility] Advance Directives For more information, please contact: [phone] Documents on File Type Date Recorded Patient Medical Billing Assistant Expl anation ADVANCE DIRECTIVE 08/06/2021 2:16 PM Power of Flow Trader-Medical * Full Code (Latest Code Status on File) Date Activated Date Inactivated Comments 07/06/2023 12:19 PM 07/07/2023 5:44 PM * Full Code Date Activated Date Inactivated Comments 01/23/2023 1:42 PM 01/24/2023 3:48 PM * Full Code Date Activated Date Inactivated Comments 08/06/2021 9:26 PM 08/08/2021 9:15 PM Care Teams Candy Puller Relationship Specialty Start Date End Date Eligio Ivan MD [address] [place] [address] PCP - General 10/29/16 Robert Webber MD [address] [place] [address] Consulting Physician Cardiology 05/05/23 [place] [address] [place] [address] Consulting Physician Vascular Surgery 07/07/23
--- OUTSIDE RECORDS SUMMARY | 2024-10-17 00:50 | XMS_ITS | Encounter Summary ---
Author Organization [facility] Address [address] [facility] [address] [place] [address] Care Team Providers Care Car Mechanic Helper Name Role Phone Eligio Ivan MD Primary Care Provider Eligio Ivan MD Primary Care Provider Robert Webber MD Unavailable [phone] Arron Hunter MD Unavailable [phone] Encounter Details Date Type Department Care Team (Late st Contact Info) Description 08/09/2016 Orders Only [facility] ProviderTerese MD [address] [place] [id number] Social History Tobacco Use Types Packs/Day Years Used Date Smoking Tobacco: Never Assessed Sex and Gender Information Value Date Recorded Sex Assigned at Not on file Legal Sex Male 3:48 AM SENIOR MECHANICAL DEVELOPMENT ENGINEER Gender Identity Not on file Sexual Orientation Not on file documented as of this encounter Plan of Treatment Not on file documented as of this encounter Procedures Procedure Name Priority Date/Time Associated Diagnosis Comments CARDIOLOGY REPORT 08/09/2016 CARDIOLOGY REPORT 08/09/2016 documented in this encounter Results * CARDIOLOGY REPORT (08/09/2016) Anatomical Region Laterality Modality Other Narrative 08/09/2016 Ordered by an unspecified provider. Historical Provider [facility] Final Result * CARDIOLOGY REPORT (08/09/2016) Anatomical Region Laterality Modality Other Narrative 08/09/2016 Ordered by an unspecified provider. us Historical Provider [facility] Final Result documented in this encounter Visit Diagnoses Not on filedocumented in this encounter Additional Health Concerns Infection Onset Date Last Indicated Resolved Time Exposure, COVID-19 07/16/2021 07/20/2021 2 3:05 AM SENIOR MECHANICAL DEVELOPMENT ENGINEER documented as of this encounter Care Teams Car Mechanic Helper Relationship Specialty Start Date End Date Eligio Ivan MD [address] [place] [address] PCP - General 10/29/16 Eligio Ivan MD [address] [place] [address] PCP - General 08/09/16 10/28/16 Robert Webber MD [address] [place] [address] Consulting Physician Cardiology 05/05/23 [place] [address] [place] [address] Consulting Physician Vascular Surgery 07/07/23 documented as of this encounter
--- OUTSIDE RECORDS SUMMARY | 2024-10-17 00:50 | XMS_ITS | Continuity of Care Document ---
Author Organization [facility] Address [address] [place] [address] Phone Care Team Providers Care Clipper Operator Name Role Phone Gregorio Bonilla Unavailable Unavailable Procedures Procedure Date THERAPEUTIC EXERCISES NEUROMUSCULAR RE-ED MANUAL THERAPY HOT/COLD PACK ELECTRIC STIMULATION UNATT THERAPEUTIC EXERCISES MANUAL THERAPY HOT/COLD PACK ELECTRIC STIMULATION UNATT THERAPEUTIC EXERCISES MANUAL THERAPY HOT/COLD PACK ELECTRIC STIMULATION UNATT PT EVALUATION THERAPEUTIC EXERCISES MANUAL THERAPY HOT/COLD PACK Advance Directives Directive Yes / No Effective Date File Name No Information Encounters Encounter Description Practice Location Reason(s) For Visit Diagnoses Date Provider Providers Copied on Encounter [facility], [id number], tel:[phone] [place] No Information 7 Denny Braun [address] [facility], [facility] [address], [place], [place], [facility] [place], [place]. tel: [phone] [facility], [address] [facility] [address], [place], [place], [id number], tel:[phone] [place] No Information 7 Denny Braun [address] [facility], [facility] [address], [place], [facility] [place], . [phone] Referring Provider: Benigno Stout[address] [place] [address] [address] [place] [address], [facility]. tel:[phone], [id number], tel:[phone] [place] No Information 0-201 6 Muehl Gregorio. [address] [place] [address], [facility] [address], [place], [facility] [place], . tel:[phone] Referring Provider: Benigno Stout[address] [place] [address], [facility]. tel:[phone], [id number], tel:[phone] [place] No Information 8-201 6 Muehl Gregorio. [address] [place] [address], [address], [place], [facility] [place], . tel:[phone] Referring Provider: Benigno Stout[address] [place] [address] [address] [place] [address], [facility]. tel:[phone], [id number], tel:[phone] [place] Pain in right shoulderStiffnes s of right shoulder, not elsewhere classifiedUnspec ified disorder of synovium and tendon, right shoulderPain in right elbow Jul- 3201 6 Muehl Gregorio. [address] [place] [address], [address], [place], [facility] [place], . tel:[phone] Referring Provider: Benigno Stout [facility] [address], [address]. tel:[phone] Family History Family Member Type Diagnosis Age At Onset No Information Payers Payer name Insurance type Covered libertarian ID Stana enma(s) [facility] [id number] Social History Type Description Quantity Date Captured Comments Sex Male Smoking Status No Information Chief Complaint And Reason For Visit No Information Reason For Referral Reason For Referral No Information History Of Present Illness Encounter Date Complaint History Of Prese nt Illness No Information Functional Status Date Functional Assessmen t No Information Instructions Date Instruction Additional Infor mation No Information Assessments Type Assessment Date No Information Patient Care Teams Name Effective Dates (start - stop) Status Members No Information
--- OUTSIDE RECORDS SUMMARY | 2024-10-17 00:50 | XMS_ITS | Clinical Summary ---
Author Organization [facility] Address [address] [place] [address] Care Team Providers Care Ambulette Driver Name Role Phone Unavailable Primary Care Provider Unavailabl e Source Comments [facility],non-owned Affiliates and Associated Physician Practices is amultiple site organization consisting of ambulatory clinics and hospital sitesin [place], [place], [place] and [place]. This disclosure is being madepursuant to the Care Everywhere program and may not contain all information available regarding this patient. Last updated 18.[facility] Allergies No known active allergies Medications Be aware that medications may not be up to date on this document. Always verify current medications with the patient. No known medications Immunizations Name Administration Dates Next Due iNFLUENZA VACCINE, RECOM-CAMPOS, QUADR. (FLUBLOCK QUADRIVALENT; 18Y+) (RIV4) 05/22/2018 Social History Tobacco Use Types Packs/Day Years Used Date Smoking Tobacco: Never Assessed Sex and Gender Information Value Date Recorded Sex Assigned at Not on file Gender Identity Not on file Sexual Orientation Not on file Plan of Treatment Health Maintenance Due Date Last Done Comments COLOGUARD (AGES 45-75) - COL ON CA SCREENING 1955 COLON MONITORING 1955 COLONOSCOPY - COLON CA SCREENING 1955 CT COLONOGRAPHY - COLON CA SCREENING 1955 Colorectal Cancer Screening 1955 FIT - COLON CA SCREENING 1955 FLEX SIG - COLON CA SCREENING 1955 LIPID TESTING 1955 HEPATITIS C SCREENING 10/07/1973 DTAP/TDAP/TD VACCINES (1 - Tdap) 10/11/1974 PNEUMOCOCCAL VACCINE 50+ (1 of 1 - PCV) 10/11/2005 ZOSTER VACCINE (1 of 2) 10/11/2005 COVID-19 VACCINE ( - 2023-2 5 season) 2024 INFLUENZA VACCINE (#1) 2024 05/22/2018 DEPRESSION SCREENING 08/01/2024 Respiratory Syncytial Virus (RSV) Vaccine Pt: or over 60 yrs (1 - 1-dose 75+ series) 10/11/2030 HEPATITIS B VACCINE Aged Out No longe r eligible based on patient's age to complete this topic HIB VACCINE Aged Out No longer eligi ble based on patient's age to complete this topic HPV VACCINE Aged Out No longer eligi ble based on patient's age to complete this topic MENINGOCOCCAL (Group B) VACC INE SHARED DECISION-MAKING Aged Out No longer eligibl e based on patient's age to complete this topic MENINGOCOCCAL GROUPS A/C/Y/W VACCINE Aged Out No longer eligible b ased on patient's age to complete this topic
[2024-10-17 09:57] VITALS: BP 143/92; PULSE 72; RESP 16; TEMP 36.3; O2SAT 96; BMI 31.6
[2024-10-17] MEDS: LACTATED RINGERS 1,000 ML 150 ML IV CONT (10:11)
--- NOTE | 2024-10-17 10:14 | P.PNAN_ITS ---
Anes - Initial Pre Proc Eval Procedure: Operation Date: 10/17/24 10:30 Proposed Procedures p Screening Colonoscopy - Jerson Peterson MD Date/Time: 10/17/24 10:14 Surgeon: Jerson Peterson MD Pre Op Diagnosis: screening colon Patient Data Age: 69 Gender: M Height: 1.83 m Weight: 106 kg Last Vital Signs Temp 97.4 F L 10/17/24 09:57 Pulse 72 10/17/24 09:57 Resp 16 10/17/24 09:57 BP 143/92 H 10/17/24 09:57 Pulse Ox 96 10/17/24 09:57 O2 Del Method Room Air 10/17/24 09:57 Allergies Allergy/AdvReac Type Severity Reaction Status Date / Time No Known Allergies Allergy Unknown Verified 10/17/24 09:54 Home Medications ?Medication ?Instructions ?Recorded ?Confirmed ?Type aspirin 81 mg tablet,delayed 81 mg PO DAILY 10/05/19 10/17/24 History release metoprolol tartrate 25 mg tablet 25 mg PO BID 10/05/19 10/17/24 History nitroglycerin 0.4 mg sublingual 0.4 mg sublingual Q5M 10/05/19 07/30/24 History tablet rivaroxaban 2.5 mg tablet (Xarelto) 2.5 mg PO BID 05/07/20 10/17/24 History icosapent ethyl 1 gram capsule 2 g PO BID 07/30/24 10/17/24 History rosuvastatin 40 mg tablet 40 mg PO DAILY 07/30/24 10/17/24 History Patient hx anesthesia problems: none Family hx anesthesia problems: none Results Review: All pre-operative results and documents have been reviewed as part of the pre- operative evaluation. [facility] Past Medical History Medical History IFG (impaired fasting glucose) Surgical History Surgical History S/P carotid endarterectomy B/l: right 08/2021, left 07/2023 S/P coronary artery stent placement Family History Family History Mother Diabetes mellitus Carcinoma of colon, Onset Age: 78 Family history of pancreatic cancer Family history of coronary artery disease Father Family history of lung cancer, Onset Age: 45 Other Asthma Social History Social History Social History: Smoking status: Current every day smoker Tobacco type: cigars Second hand tobacco smoke exposure: No Alcohol intake: never Substance use: never Substance use type: does not use Living arrangements: with family Occupation/Education: occupation Gender identity (if verbalized by the patient): Male Sexual Orientation (if Verbalized by the Patient): Straight or Heterosexual Spiritual care concerns: No Anes - Eval Final PreProcedure Day of Procedure 10/17/24 10:14 Patient weight: obese Heart: regular rate and rhythm Lungs: clear to auscultation Airway: Mallampati scale class II Neurological: alert and oriented Last oral intake: >/= 8 hours ASA classification: III Emergent: no Anesthetic plan: proceed Anesthesia type and monitoring: general GIVS and standard monitoring Results Review: All pre-operative results and documents have been reviewed as part of the pre- operative evaluation. Informed Consent: The patient's anesthetic plan and its attendant risks and benefits were discussed with the patient/family/POA. Questions were solicited and answers provided to the satisfaction of the patient/family/POA.
--- NOTE | 2024-10-17 10:45 | PM.HPGS ---
History of Present Illness History of Present Illness Consent: Risks, benefits, and alternatives have been discussed and questions answered. Patient agrees to proceed with procedure. Chief complaint: screening colon Narrative: Mario Vega is a 69 year old male with colon polyp in 2019 Review of Systems Review of Systems: All systems reviewed & are unremarkable except as noted in HPI and below PMFSH Past Medical History Medical History (Updated 10/17/24 @ 10:48 by Jerson Peterson MD) Colon polyp IFG (impaired fasting glucose) Surgical History Surgical History S/P carotid endarterectomy B/l: right 08/2021, left 07/2023 S/P coronary artery stent placement Family History Family History Mother Diabetes mellitus Carcinoma of colon, Onset Age: 78 Family history of pancreatic cancer Family history of coronary artery disease Father Family history of lung cancer, Onset Age: 45 Other Asthma Social History Social History Social History: Smoking status: Current every day smoker Tobacco type: cigars Second hand tobacco smoke exposure: No Alcohol intake: never Substance use: never Substance use type: does not use Living arrangements: with family Occupation/Education: occupation Gender identity (if verbalized by the patient): Male Sexual Orientation (if Verbalized by the Patient): Straight or Heterosexual Spiritual care concerns: No Meds Home Medications and Allergies Home Medications ?Medication ?Instructions ?Recorded ?Confirmed ?Type aspirin 81 mg tablet,delayed 81 mg PO DAILY 10/05/19 10/17/24 History release metoprolol tartrate 25 mg tablet 25 mg PO BID 10/05/19 10/17/24 History nitroglycerin 0.4 mg sublingual 0.4 mg sublingual Q5M 10/05/19 07/30/24 History tablet rivaroxaban 2.5 mg tablet (Xarelto) 2.5 mg PO BID 05/07/20 10/17/24 History icosapent ethyl 1 gram capsule 2 g PO BID 07/30/24 10/17/24 History rosuvastatin 40 mg tablet 40 mg PO DAILY 07/30/24 10/17/24 History Allergies Allergy/AdvReac Type Severity Reaction Status Date / Time No Known Allergies Allergy Unknown Verified 10/17/24 09:54 Vital Signs Vital Signs - 24 hr 10/17/24 09:57 Temperature 97.4 F L Pulse Rate 72 Respiratory Rate 16 Blood Pressure 143/92 H Pulse Oximetry 96 Oxygen Delivery Room Air Exam Const: General: comfortable and no acute distress HENMT: Face/Nose/Sinus: Normal nares present Eyes: General: appearance normal, both eyes and all related structures Neck: Neck: no JVD Resp: Auscultation: clear to auscultation bilaterally Cardio: Rate: regular rate Rhythm: regular rhythm GI: Inspection: non-distended GI Palp: Yes Soft to palpation Skin: General skin exam: normal color Neuro: Speech: normal speech Extrem: General: normal to inspection Psych: Mental Status: mental status grossly normal Assessment and Plan Assessment and plan (1) Colon polyp: Code(s): K63.5 - Polyp of colon Status: Acute Assessment and Plan: colonoscopy
[2024-10-17 11:05] VITALS: BP 111/68; PULSE 62; RESP 14; O2SAT 96
[2024-10-17 11:15] VITALS: BP 131/97; PULSE 61; RESP 16; O2SAT 97
[2024-10-17 11:25] VITALS: BP 141/72; PULSE 60; RESP 18; O2SAT 99
--- NOTE | 2024-10-17 11:34 | SUR.PHASEII ---
Patient instructed to continue Xarelto tomorrow 10/18 per MD orders. Patient and spouse verbalized understanding.
== END 2024-10-17 11:33 | disposition home or self-care (01) ==
PROVIDERS: PCP Family Medicine; Referring Provider Physician Assistant; Visit Provider Internal Medicine Gastroenterology
PROC: 0DJD8ZZ Inspection of Lower Intestinal Tract, Via Natural or Artificial Opening Endoscopic (ICD-10-PCS; CPT 45378; principal; 2024-10-17 10:30)
DX: Z12.11 Encounter for screening for malignant neoplasm of colon (principal); D12.3 Benign neoplasm of transverse colon; K64.8 Other hemorrhoids; K57.30 Diverticulosis of large intestine without perforation or abscess without bleeding; F17.290 Nicotine dependence, other tobacco product, uncomplicated; Z79.82 Long term (current) use of aspirin; Z79.01 Long term (current) use of anticoagulants; Z98.890 Other specified postprocedural states; Z95.5 Presence of coronary angioplasty implant and graft; Z80.0 Family history of malignant neoplasm of digestive organs; Z80.1 Family history of malignant neoplasm of trachea, bronchus and lung; Z82.49 Family history of ischemic heart disease and other diseases of the circulatory system
CPT/HCPCS: 45385; 88305; J2003; J2704; J7120